=== PATIENT | female | born 1985 | race Caucasian/White ===

== ENCOUNTER 2016-10-14 15:58 | Emergency (ER) | payer OTHER ==
[~2016-10-14 15:58] MED LIST: NORCO 5/3251 EACH PO; NORVASC5 MG PO; PHENERGAN25 M1 PO
== END 2016-10-14 16:46 | disposition home or self-care (01) ==
LOC: FER 15:58
DX: L03.115 Cellulitis of right lower limb (principal); F17.210 Nicotine dependence, cigarettes, uncomplicated
CPT/HCPCS: 99282

== ENCOUNTER 2016-10-21 14:20 | Emergency (ER) | payer OTHER ==
[2016-10-21 15:41] LABS: BILIRUBIN NEGATIVE (NEGATIVE); BLOOD NEGATIVE Ery/uL (NEGATIVE); COLOR YELLOW (YELLOW); GLUCOSE (U) NORMAL (NORMAL); KETONE (U) TRACE mg/dL (NEGATIVE); LEUKOCYTES TRACE Leu/uL (NEGATIVE); NITRITE NEGATIVE (NEGATIVE); PROTEIN TRACE (LOW) mg/dL (NEGATIVE); UROBILINOGEN 0.2 mg/dL (0.2-1.0)
[2016-10-21 15:43] LABS: CLARITY SLIGHTLY HAZY (CLEAR)
[2016-10-21 15:43] LABS: BASOPHIL 0.3 % (0-2); EOSINOPHIL 0.5 % (0-5); HCT 42.1 % (37.0-47.0); HGB 14.4 g/dl (12.5-16.0); LYMPHOCYTE 19.4 % (15-48); MCH 29.2 pg (25.0-31.0); MCHC 34.2 g/dL (32.0-36.0); MCV 85.4 fL (78.0-100.0); MONOCYTE 4.8 % (0-12); MPV 9.9 fL (6.0-9.5); PLT 369 K/uL (150-400); RBC 4.93 M/uL (4.20-5.40); RDW 13.8 % (11.5-14.0); WBC 7.3 K/uL (4.0-10.5)
[2016-10-21 15:47] LABS: BACTERIA TRACE; URINARY RBC RARE
[2016-10-21 15:51] LABS: AMPHETAMINES NEGATIVE (NEGATIVE); BARBITURATES NEGATIVE (NEGATIVE); BENZODIAZEPINES NEGATIVE (NEGATIVE); COCAINE NEGATIVE (NEGATIVE); MARIJUANA (THC) NEGATIVE (NEGATIVE); METHADONE NEGATIVE (NEGATIVE); TRICYCLIC ANTIDEPRESSANT NEGATIVE (NEGATIVE)
[2016-10-21 16:11] LABS: CREATININE 0.8 mg/dL (0.5-1.0)
== END 2016-10-21 17:15 | disposition home or self-care (01) ==
LOC: FER 14:20
PROVIDERS: Internal Medicine
DX: L02.415 Cutaneous abscess of right lower limb (principal); E78.5 Hyperlipidemia, unspecified; F17.210 Nicotine dependence, cigarettes, uncomplicated
CPT/HCPCS: 36415; 80048; 80305; 81001; 85025; 99283

== ENCOUNTER 2020-11-07 20:00 | Emergency (ER) | payer OTHER ==
[2020-11-07] MEDS ORDERED: ATARAX25 MG PO (21:43)
== END 2020-11-07 22:03 | disposition home or self-care (01) ==
LOC: FER 20:00
DX: F41.0 Panic disorder [episodic paroxysmal anxiety] (principal); F17.210 Nicotine dependence, cigarettes, uncomplicated; Z87.19 Personal history of other diseases of the digestive system; Z79.899 Other long term (current) drug therapy
CPT/HCPCS: 99284